=== PATIENT | male | born 1975 | race Caucasian/White ===

== ENCOUNTER 2017-01-13 18:15 | Observation (INO) | payer BC ==
[2017-01-13] MEDS ORDERED: 50% Dextrose in Water 50 ML Syringe ONE (18:29)
[2017-01-13] MEDS ORDERED: Sodium Chloride 0.9% 10 ML Syringe FLUSH PRN ×2 (18:32→23:21)
[2017-01-13] MEDS ORDERED: 50% Dextrose in Water 50 ML Syringe IVPUSH ONE (18:33)
[2017-01-13] MEDS ORDERED: Sodium Chloride 0.9% 1,000 ML IV ONE (18:37)
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
[2017-01-13] MEDS ORDERED: Dextrose 10% in Water 1,000 ML IV SCH (20:15)
[2017-01-13] MEDS ORDERED: Dextrose 10% in Water 500 ML ONE (20:40)
[2017-01-13] MEDS ORDERED: Dextrose 10% in Water 500 ML IV SCH (21:00)
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
[2017-01-13] MEDS ORDERED: Acetaminophen/HYDROcodone 325-5 MG Tab PO PRN (23:19)
[2017-01-13] MEDS ORDERED: Bisacodyl 5 MG Tab PO PRN (23:19)
[2017-01-13] MEDS ORDERED: Acetaminophen 325 MG Tab PO PRN (23:19)
[2017-01-13] MEDS ORDERED: Promethazine 12.5 MG in Sodium Chloride 0.9% 50 ML IV PRN (23:19)
[2017-01-13] MEDS ORDERED: LORazepam 2 MG/ML MDV IV PRN (23:19)
[2017-01-13] MEDS ORDERED: Docusate Sodium 100 MG Cap PO PRN (23:19)
[2017-01-13] MEDS ORDERED: Ondansetron 4 MG/2 ML SDV IV PRN (23:19)
[2017-01-13] MEDS ORDERED: Albuterol 0.083% 2.5 MG/3 ML Neb Soln NEB PRN (23:19)
[2017-01-13] MEDS ORDERED: Temazepam 15 MG Cap PO PRN (23:19)
[2017-01-13] MEDS ORDERED: Polyethylene Glycol 3350 Powder 17 GM Packet PO PRN (23:19)
[2017-01-13] MEDS ORDERED: 50% Dextrose in Water 50 ML Syringe IVPUSH PRN (23:23)
[2017-01-13] MEDS ORDERED: hydrALAZINE 20 MG/ML SDV IVPUSH PRN (23:56)
[2017-01-13] MEDS ORDERED: Metoprolol Tartrate 5 MG/5 ML SDV IVPUSH PRN (23:56)
[2017-01-14] MEDS: Insulin Aspart 100 Units/ML 3 ML Pen SUBCUT SCH ×2 (06:14→11:38)
--- NOTE | 2017-01-14 08:30 | CT ---
Head CT Technique: Multiple axial sections through the brain were obtained. Intravenous contrast was not utilized. Findings: Ventricles along with basal cisterns and sulci over the convexities are within normal limits for the patient's age. No abnormal parenchymal densities are seen. No evidence of intracranial hemorrhage. No midline shift or mass effect is seen. Bone window settings were reviewed which show minimal mucosal thickening within the ethmoid sinuses which is incidental. Minimal mucosal thickening is seen within the maxillary sinuses which is also incidental. Mastoid sinuses and middle ear cavities are clear. No acute calvarial abnormality is appreciated. Impression: 1. Minimal sinus findings which are incidental. 2. Nothing acute is identified on noncontrast head CT study. Diagnostic code #2 I agree with preliminary report issued by [facility] (preliminary report dictated on 01/13/17, 10:51 PM Central Time)
[2017-01-14] MEDS ORDERED: Enoxaparin 40 MG/0.4 ML Syringe SUBCUT SCH (09:00)
[2017-01-14 12:46] VITALS: BP 112/72
--- NOTE | 2017-01-14 14:06 | PCM.DCSUM1 ---
Discharge Summary - Hospital Course Brief History: This is a 41 yo white male with past medical hx/o DM2 on Insulin , Chronic Orthostatic Hypotension and Obesity who comes in with complaints of low blood sugar and was admitted for documented symptomatic hypoglycemia. - Discharge Data Discharge Date: 01/14/17 Discharge Disposition: Home, Self-Care 01 Condition: Good - Discharge Diagnosis/Problem(s) (1) DM2 (diabetes mellitus, type 2) SNOMED Code(s): 67920337 ICD Code: E11.9 - TYPE 2 DIABETES MELLITUS WITHOUT COMPLICATIONS Status: Chronic Qualifiers: Diabetes mellitus complication status: without complication Diabetes mellitus watermaster insulin use: without fpc use Qualified Code(s): E11.9 - Type 2 diabetes mellitus without complications (2) Obesity due to excess calories SNOMED Code(s): 887830662 ICD Code: E66.09 - OTHER OBESITY DUE TO EXCESS CALORIES Status: Chronic (3) Hypoglycemia SNOMED Code(s): 700369359 ICD Code: E16.2 - HYPOGLYCEMIA, UNSPECIFIED Status: Resolved (4) Seizure disorder SNOMED Code(s): 435596045 ICD Code: G40.909 - EPILEPSY, UNSP, NOT INTRACTABLE, WITHOUT STATUS EPILEPTICUS Status: Resolved Problem Details: 2/2 Hypoglycemia - Patient Summary/Data Operative Procedure(s) Performed: None Complications: None Consults: Consultations 01/13/17 23:22 Consult to Case Management [CONS] Routine Consult to Diabetic Nurse Specialist [CONS] Routine Consult to Hand Laminator [CONS] Routine Consult to Director Of Rooms [CONS] Routine Hospital Course: Discharge Summary Per Problem List: Documented Symptomatic Hypoglycemia - BS in the 30s-40s - Hoedd off diabetic meds on admission - Received D5W IVF and his level improve to 150s - A1C is 7.5 and Thyroid panel is normal - New regimen: Insulin 27 units sub Q daily, Janumet 50-1000 mg po daily, discontinue Metformin 100 mg po BID Seizure - 2/2 Hypoglycemic State - Bit his tongue - No episode since admission - No need for anti-seizure meds since its a one time event Chronic: DM2, BS stable on discharge, Diabetic Education Obesity, Dietary consulted for weight management Chronic Orthostatic Hypotension, stable Overall, Mr. Locke has done very well since admission. His hospital course was uncomplicated. The rest of his chronic medical illness remained stable during this admission. Patient will now be going home with a new diabetic regimen. He is to continue checking his BS as he normally does at home. He was advised to show his log on his follow up appointment to his PCP for further medication adjustment. On the day of discharge, he was counseled on lifestyle modifications to include proper diet, regular exercise and weight loss. The patient expressed understanding and in agreement with the plana as discussed above. All questions were answered. - Patient Instructions Diet: Usual Diet as Tolerated, Diabetic Diet, Weight Loss Diet Activity: As Tolerated Driving: May Drive Today Showering/Bathing: May Shower Notify Provider of: Fever, Increased Pain, Nausea and/or Vomiting Other/Special Instructions: - Please take all medications. - Check and log your sugar TID daily and show log to your doctor on your. follow up appointment. - Discontinue metformin as part of your diabetic regimen. - May return to work w/o restrictions on 01/19/2017. - Recommend regular exercise, proper diet and weight loss. - Follow up with you doctor as scheduled. - Call you doctor for any questions or concerns - Discharge Plan Home Medications: Home Meds sitaGLIPtin Phos/Metformin HCl [Janumet Xr 50-1,000 mg Tablet] 1 tab PO PCBREAKFAST 01/13/17 [History] Insulin Glargine,Hum.Rec.Anlog [Toujeo Solostar] 27 units SUBCUT DAILY #0 01/14 [Rx] atorvaSTATin [Lipitor] 1 tab PO DAILY 01/14/17 [History] Patient Handouts: Hypoglycemia Referrals: Amirah Gray DUTY OFFICER [Primary Care Provider] - 01/19/17 12:30 pm (at [facility] come 15 minutes early) - Discharge Summary/Plan Comment DC Time >30 min.: Yes (45 mins) Discharge Summary/Plan Comment: Discharge to Home - General Info Date of Service: 01/14/17 Admission Dx/Problem (Free Text: Hypoglycemia Subjective Update: Follow Up Functional Status: Reports: pain controlled, tolerating diet, ambulating, urinating. Denies: new symptoms - Review of Systems General: Denies: Fever, Weakness, Fatigue, Malaise, Chills HEENT: Reports: no symptoms Pulmonary: Denies: shortness of breath Cardiovascular: Denies: Chest Pain, Palpitations, Dyspnea on Exertion, Lightheadedness Gastrointestinal: Denies: Abdominal pain, Nausea, Vomiting Genitourinary: Reports: no symptoms Musculoskeletal: Reports: no symptoms Skin: Denies: cyanosis, rash Neurological: Denies: Dizziness, Difficulty Walking, Weakness, Gait Disturbance Psychiatric: Denies: depression, anxiety, agitation, cravings, hallucinations - Patient Data Vitals - Most Recent: Last Vital Signs Temp 37.1 C 01/14/17 12:00 Pulse 88 01/14/17 12:00 Resp 18 01/14/17 12:00 BP 112/72 01/14/17 12:00 Pulse Ox 98 01/14/17 12:00 Weight - Most Recent: 120.383 kg I&O - Last 24 hours: Intake & Output 01/13/17 01/14/17 01/14/17 22:59 06:59 14:59 Intake Total 300 Balance 300 Lab Results - Last 24 hrs: Laboratory Results - last 24 hr 01/13/17 01/14/17 01/14/17 Range/Units 23:23 05:47 05:47 WBC (4.23-9.07) K/mm3 RBC (4.63-6.08) M/mm3 Hgb (13.7-17.5) gm/L Hct (40.1-51.0) % MCV (79.0-92.2) fl MCH (25.7-32.2) pg MCHC (32.2-35.5) g/dl RDW Std Deviation (35.1-43.9) fL Plt Count (163-337) K/mm3 MPV (9.4-12.3) fl Neut % (Auto) (34.0-67.9) % Lymph % (Auto) (21.8-53.1) % Isabella % (Auto) (5.3-12.2) % Eos % (Auto) (0.8-7.0) Baso % (Auto) (0.1-1.2) % Neut # (Auto) (1.78-5.38) K/mm3 Lymph # (Auto) (1.32-3.57) K/mm3 Isabella # (Auto) (0.30-0.82) K/mm3 Eos # (Auto) (0.04-0.54) K/mm3 Baso # (Auto) (0.01-0.08) K/mm3 Sodium 138 (136-145) mEq/L Potassium 3.8 (3.5-5.1) mEq/L Chloride 104 (98-107) mEq/L Carbon Dioxide 25 (21-32) mEq/L Anion Gap 12.8 (5-15) BUN 11 (7-18) mg/dL Creatinine 1.0 (0.7-1.3) mg/dL Est Cr Clr Drug Dosing 72.01 mL/min Estimated GFR (MDRD) > 60 (>60) mL/min BUN/Creatinine Ratio 11.0 L (14-18) Glucose 152 H (74-106) mg/dL POC Glucose 150 H (70-105) mg/dL Hemoglobin A1c 7.50 H (4.50-6.20) % Calcium 8.7 (8.5-10.1) mg/dL Magnesium 2.0 (1.8-2.4) mg/dl Free T4 0.79 (0.76-1.46) ng/dL TSH 3rd Generation 0.497 (0.358-3.74) uIU/mL 01/14/17 01/14/17 01/14/17 Range/Units 05:47 06:04 11:11 WBC 11.38 H (4.23-9.07) K/mm3 RBC 4.85 (4.63-6.08) M/mm3 Hgb 14.9 (13.7-17.5) gm/L Hct 43.6 (40.1-51.0) % MCV 89.9 (79.0-92.2) fl MCH 30.7 (25.7-32.2) pg MCHC 34.2 (32.2-35.5) g/dl RDW Std Deviation 43.4 (35.1-43.9) fL Plt Count 195 (163-337) K/mm3 MPV 9.9 (9.4-12.3) fl Neut % (Auto) 66.8 (34.0-67.9) % Lymph % (Auto) 22.0 (21.8-53.1) % Isabella % (Auto) 10.3 (5.3-12.2) % Eos % (Auto) 0.4 L (0.8-7.0) Baso % (Auto) 0.2 (0.1-1.2) % Neut # (Auto) 7.62 H (1.78-5.38) K/mm3 Lymph # (Auto) 2.50 (1.32-3.57) K/mm3 Isabella # (Auto) 1.17 H (0.30-0.82) K/mm3 Eos # (Auto) 0.04 (0.04-0.54) K/mm3 Baso # (Auto) 0.02 (0.01-0.08) K/mm3 Sodium (136-145) mEq/L Potassium (3.5-5.1) mEq/L Chloride (98-107) mEq/L Carbon Dioxide (21-32) mEq/L Anion Gap (5-15) BUN (7-18) mg/dL Creatinine (0.7-1.3) mg/dL Est Cr Clr Drug Dosing mL/min Estimated GFR (MDRD) (>60) mL/min BUN/Creatinine Ratio (14-18) Glucose (74-106) mg/dL POC Glucose 150 H 158 H (70-105) mg/dL Hemoglobin A1c (4.50-6.20) % Calcium (8.5-10.1) mg/dL Magnesium (1.8-2.4) mg/dl Free T4 (0.76-1.46) ng/dL TSH 3rd Generation (0.358-3.74) uIU/mL Med Orders - Current: Current Medications Acetaminophen (Tylenol) 650 mg PO Q4H PRN PRN Reason: Pain (Mild 1-3)/fever Last Admin: 01/14/17 00:27 Dose: 650 mg Hydrocodone Bitart/Acetaminophen (Whitney 325-5 Mg) 1 tab PO Q4H PRN PRN Reason: Pain (moderate 4-6) Albuterol (Proventil Neb Soln) 2.5 mg NEB Q2H PRN PRN Reason: Shortness Of Breath/wheezing Bisacodyl (Dulcolax) 5 mg PO DAILY PRN PRN Reason: Constipation Dextrose/Water (Dextrose 50% In Water) 50 ml IVPUSH ASDIRECTED PRN PRN Reason: Hypoglycemia Docusate Sodium (Colace) 100 mg PO BID PRN PRN Reason: Constipation Enoxaparin Sodium (Lovenox) 40 mg SUBCUT DAILY TIFFANIE Last Admin: 01/14/17 10:23 Dose: 40 mg Hydralazine HCl (Apresoline) 20 mg IVPUSH Q4H PRN PRN Reason: Hypertension Promethazine HCl 12.5 mg/ (Sodium Chloride) 50.5 mls @ 100 mls/hr IV Q6H PRN PRN Reason: Nausea/Vomiting Insulin Aspart (Novolog) 0 unit SUBCUT QIDACANDBED TIFFANIE PRN Reason: Protocol Last Admin: 01/14/17 11:38 Dose: 1 unit Lorazepam (Ativan) 1 mg IV Q6H PRN PRN Reason: Anxiety Metoprolol Tartrate (Lopressor) 5 mg IVPUSH Q4H PRN PRN Reason: Tachycardia Ondansetron HCl (Zofran) 4 mg IV Q6H PRN PRN Reason: Nausea/Vomiting Polyethylene Glycol (Miralax) 17 gm PO DAILY PRN PRN Reason: Constipation Senna/Docusate Sodium (Senna Plus) 1 tab PO BID PRN PRN Reason: Constipation Simvastatin (Zocor) 10 mg PO DAILY@1700 TIFFANIE Sodium Chloride (Saline Flush) 10 ml FLUSH ASDIRECTED PRN PRN Reason: Keep Vein Open Temazepam (Restoril) 15 mg PO BEDTIME PRN PRN Reason: Sleep Discontinued Medications Dextrose/Water (Dextrose 50% In Water) Confirm Administered Dose 50 ml .ROUTE .STK-MED ONE Stop: 01/13/17 18:30 Last Admin: 01/13/17 18:58 Dose: Not Given Dextrose/Water (Dextrose 50% In Water) 50 ml IVPUSH ASDIRECTED ONE Stop: 01/13/17 18:34 Last Admin: 01/13/17 18:30 Dose: 50 ml Sodium Chloride (Normal Saline) 1,000 mls @ 999 mls/hr IV ONETIME ONE Stop: 01/13/17 19:37 Last Admin: 01/13/17 18:57 Dose: 999 mls/hr Dextrose/Water (Dextrose 10% In Water) 1,000 mls @ 50 mls/hr IV ASDIRECTED [facility] Dextrose/Water (Dextrose 10% In Water) Confirm Administered Dose 500 mls @ as directed .ROUTE .STK-MED ONE Stop: 01/13/17 20:41 Last Admin: 01/13/17 23:54 Dose: Not Given Dextrose/Water (Dextrose 10% In Water) 500 mls @ 50 mls/hr IV ASDIRECTED [facility] Last Admin: 01/13/17 20:51 Dose: 50 mls/hr Sodium Chloride (Saline Flush) 10 ml FLUSH ASDIRECTED PRN PRN Reason: Keep Vein Open Last Admin: 01/13/17 18:57 Dose: 10 ml - Exam General: Reports: alert, oriented, cooperative, no acute distress, other (Obese) HEENT: Reports: Pupils equal, Pupils reactive, EOMI, Mucous membr. moist/pink Neck: Reports: supple, trachea midline, no JVD, other (short and thick) Lungs: Reports: Clear to auscultation, Normal respiratory effort Cardiovascular: Reports: Regular Rate, Regular Rhythm Abdomen: Reports: bowel sounds present, soft, no tenderness, no distension, other (Obese) (Male) Exam: Deferred Rectal (Males) Exam: Deferred Back Exam: Reports: Normal Inspection, Decreased Range of Motion Extremities: Reports: no edema, normal pulses, no tenderness/swelling, no clubbing, no cyanosis, no calf tenderness Skin: Reports: warm, dry, intact Neurological: Reports: no new focal deficit Psy/Mental Status: Reports: alert, normal affect, normal mood *Q Meaningful Use (DIS) - VTE *Q VTE Criteria *Q: - Stroke *Q Stroke Criteria *Q: - AMI *Q AMI Criteria *Q:
[2017-01-14] MEDS ORDERED: Simvastatin 10 MG Tab PO SCH (17:00)
--- NOTE | 2017-01-14 20:50 | PCM.SN ---
- Free Text/Narrative Note: Patient seen and examined this am. Thyroid panel is normal and A1C is 7.5. Informed patient he does not really need to be on insulin but will defer that to his PCP on follow up appointment. However, we will try to cut down his dose to prevent another hypoglycemic episode in the future. I also suggested to stop one of his 2 oral diabetic meds, he agreed to discontinue his Metformin. Will await specialist employee labor relations and diabetic education, he should be okay to go home after that.
== END 2017-01-14 15:30 | disposition home or self-care (01) ==
LOC: JD.ED 18:15 → JD.MS 23:07
PROVIDERS: ADMIT Internal Medicine; ATTEND Internal Medicine
DX: E11.649 Type 2 diabetes mellitus with hypoglycemia without coma (principal); G40.909 Epilepsy, unspecified, not intractable, without status epilepticus; E66.09 Other obesity due to excess calories; I95.1 Orthostatic hypotension; Z79.4 Long term (current) use of insulin; Z79.899 Other long term (current) drug therapy; Z88.8 Allergy status to other drugs, medicaments and biological substances; Z79.84 Long term (current) use of oral hypoglycemic drugs
CPT/HCPCS: 36415; 70450; 80048; 80053; 80306; 81001; 82962; 83036; 83735; 84439; 84443; 85025; 96361; 96372; 96374; 99285; A9270; G0378; G0480; J1650; J1815; J7040; J7050; J7060; 96365; 96366; 96375